=== PATIENT | male | born 1970 | race Two or more races ===

== ENCOUNTER 2020-12-16 18:53 | Emergency (ER) | payer SELFPAY ==
[2020-12-16] MEDS ORDERED: Bacitracin/Neomycin/Polymyxin B Oint 28.4 GM Tube ONE (19:56)
[2020-12-16] MEDS ORDERED: Bacitracin/Neomycin/Polymyxin B Oint 28.4 GM Tube TOP ONE (20:03)
--- NOTE | 2020-12-16 20:03 | EDM.PDOC ---
ED HPI GENERAL MEDICAL PROBLEM - General Chief Complaint: General Stated Complaint: RIGHT HAND BURN Time Seen by Provider: 12/16/20 19:30 Source of Information: Reports: Patient History Limitations: Reports: No Limitations - History of Present Illness INITIAL COMMENTS - FREE TEXT/NARRATIVE: Patient presents with small britton on right long and ring fingers. He was welding and passed a torch across his hand briefly. No other injuries. Right Hand Pain Score (Numeric/FACES): 5 - Related Data Allergies Allergy/AdvReac Type Severity Reaction Status Date / Time No Known Drug Allergies Allergy Other Verified 12/16/20 19:31 Home Meds: Home Meds traMADol [Ultram] 50 mg PO Q6H PRN 12/16/20 [History] ED ROS GENERAL - Review of Systems Review Of Systems: Comprehensive ROS is negative, except as noted in HPI. ED EXAM, GENERAL - Physical Exam Exam: See Below Exam Limited By: No Limitations General Appearance: Alert, WD/WN, No Apparent Distress Eye Exam: Bilateral Eye: EOMI, Normal Inspection, PERRL Ears: Normal External Exam, Hearing Grossly Normal Nose: Normal Inspection, No Blood Throat/Mouth: Normal Inspection, Normal Lips, Normal Voice, No Airway Compromise Head: Atraumatic, Normocephalic Neck: Normal Inspection, Full Range of Motion Respiratory/Chest: No Respiratory Distress, Lungs Clear, Normal Breath Sounds Cardiovascular: Regular Rate, Rhythm, No Murmur Back Exam: Normal Inspection, Full Range of Motion Extremities: Normal Range of Motion Neurological: Alert, Oriented, Normal Cognition, No Motor/Sensory Deficits Psychiatric: Normal Affect, Normal Mood Skin Exam: Warm, Dry, Intact Course - Vital Signs Last Recorded V/S: Last Vital Signs Temp 97.4 F 12/16/20 19:28 Pulse 77 12/16/20 19:28 Resp 20 12/16/20 19:28 BP 149/83 H 12/16/20 19:41 Pulse Ox 100 12/16/20 19:28 - Re-Assessments/Exams Free Text/Narrative Re-Assessment/Exam: 12/16/20 20:15 Fingers cleaned and triple antibiotic ointment applied to britton. Bandages applied. Discussed findings and treatment plan with javier. Patient discharged to home in stable condition. Departure - Departure Time of Disposition: 19:58 Disposition: Home, Self-Care 01 Condition: Good Clinical Impression: Burn of multiple fingers excluding thumb Qualifiers: Encounter type: initial encounter Laterality: right Burn degree: partial thickness (2nd degree) Qualified Code(s): T23.231A - Burn of second degree of multiple right fingers (nail), not including thumb, initial encounter - Discharge Information Instructions: Burn Care, Adult, [id number] Referrals: Simran Adler MD [Primary Care Provider] - Additional Instructions: Keep britton clean. Clean carefully and apply thin layer of antibiotic ointment 1-2x/day. Use Ibuprofen 200-600 mg three times a day as needed for pain. Follow up with your PCP if not resolving in a week; sooner if worsening. Sepsis Event Note (ED) - Evaluation Sepsis Screening Result: No Definite Risk - Focused Exam Vital Signs: Vital Signs Temp Pulse Resp BP Pulse Ox 12/16/20 19:41 149/83 H 12/16/20 19:28 97.4 F 77 20 139/110 H 100
== END 2020-12-16 20:05 | disposition home or self-care (01) ==
LOC: KA.ED 18:53
DX: T23.231A Burn of second degree of multiple right fingers (nail), not including thumb, initial encounter (principal); X08.8XXA Exposure to other specified smoke, fire and flames, initial encounter
CPT/HCPCS: 16020; 99283; 99283-25